=== PATIENT | female | born 1960 | race African-American/Black ===

== ENCOUNTER 2018-08-30 08:44 | Emergency (ER) | payer MEDICAID ==
[~2018-08-30] VITALS: Ht 154.9 cm; Wt 83.0 kg
[~2018-08-30 08:44] MED LIST: HCTZ
[2018-08-30 08:54] VITALS: BP 176/88
== END 2018-08-30 12:01 | disposition home or self-care (01) ==
LOC: ER 08:44
DX: K13.0 Diseases of lips (principal); I10 Essential (primary) hypertension; Z88.8 Allergy status to other drugs, medicaments and biological substances; Z88.5 Allergy status to narcotic agent
CPT/HCPCS: 99282; 99283